=== PATIENT | female | born 1960 | race Caucasian/White ===

== ENCOUNTER → 2020-06-02 | Outpatient (CLI) | payer MEDICARE, OTHER ==
[~2020-06-02] MED LIST: ADIPEX-P37.5 M1 PO; AMITIZA 24 MCG24 MCG PO; ASPIR 8181 MG PO; AZELASTINE137 MCG/0.; CELEBREX 200MG200 MG PO; CELEBREX200 MG PO; CLEOCIN HCL300 MG PO; DULERA 200 MCG8.8 GM INH; FLEXERIL 10 MG10 MG PO; FLONASE ALLER15.8 ML; GLUCOPHAGE500 MG PO; LIVALO2 MG PO; LORTAB 7.5-3251 EACH PO; MEGA BIOTIN10000 MCG PO; METFORMIN HCL500 MG PO; MONTELUKAST SOD10 MG PO; MYCOSTATIN CREA15 GM TOP; MYCOSTATIN POWD15 GM TOP; NEURONTIN 300300 MG PO; NORCO 7.5-3251 EACH PO; OMEPRAZOLE20 MG PO; PERCOCET 7.5-31 EACH PO; PRAULENT INJ; PROTONIX40 MG PO; ROPINIROLE HCL1 MG PO; SINGULAIR10 MG PO; SYNTHROID75 MCG PO; VOLTAREN100 GM TP; Viscous lidocaine2% TOP; ZANTAC300 MG PO; ZOFRAN4 MG PO; ZYRTEC10 MG PO
== END ==
LOC: RAD 12:46
DX: J30.1 Allergic rhinitis due to pollen (principal); J30.89 Other allergic rhinitis; H10.45 Other chronic allergic conjunctivitis; J98.9 Respiratory disorder, unspecified; R94.2 Abnormal results of pulmonary function studies; Z87.891 Personal history of nicotine dependence
CPT/HCPCS: 71046

== ENCOUNTER → 2020-10-13 | Outpatient (CLI) | payer MEDICARE, OTHER | LOC: RAD 11:16 | DX: M53.3 Sacrococcygeal disorders, not elsewhere classified (principal); M47.817 Spondylosis without myelopathy or radiculopathy, lumbosacral region | CPT/HCPCS: 72100 ==

== ENCOUNTER → 2020-10-31 | Outpatient (CLI) | payer MEDICARE, OTHER | LOC: RAD 11:05 | DX: M25.552 Pain in left hip (principal) | CPT/HCPCS: 73522 ==

== ENCOUNTER → 2021-01-20 | Outpatient (CLI) | payer MEDICARE, OTHER | LOC: KOH-I 08:53 | DX: S82.141A Displaced bicondylar fracture of right tibia, initial encounter for closed fracture (principal); M25.461 Effusion, right knee | CPT/HCPCS: 73700 ==

== ENCOUNTER → 2021-06-16 | Outpatient (CLI) | payer MEDICARE, OTHER | LOC: KOH-I 16:30 | DX: J01.81 Other acute recurrent sinusitis (principal); J32.0 Chronic maxillary sinusitis | CPT/HCPCS: 70486 ==

== ENCOUNTER → 2021-12-02 | Outpatient (CLI) | payer MEDICARE, OTHER | LOC: EXRD 09:13 | DX: Z13.6 Encounter for screening for cardiovascular disorders (principal); I71.9 Aortic aneurysm of unspecified site, without rupture | CPT/HCPCS: 76706 ==